=== PATIENT | female | born 1965 | race Caucasian/White ===

== ENCOUNTER 2019-11-19 11:38 | Emergency (ER) | payer OTHER, SELFPAY ==
[2019-11-19 12:22] LABS: Absolute Lymphocytes (CBC) 1.2 K/uL (0.7-4.9); Basophils % 0.3 % (0-1.3); Lymphocytes % 25.5 % (15.3-44.8); MPV 8.9 fL (7.6-11.3); RBC Red Blood Cell Count 4.54 M/uL (3.86-4.86)
[2019-11-19] MEDS ORDERED: ONDANSETRON 4 MG/2 ML VIAL ONE (12:22)
[2019-11-19] MEDS ORDERED: NA CHLORIDE 0.9% 1,000 ML ONE (12:22)
[2019-11-19 12:37] LABS: ALT/SGPT 18 U/L (12-78); AST/SGOT 15 U/L (15-37); Alkaline Phosphatase 94 U/L (45-117); BUN Blood Urea Nitrogen 8 mg/dL (7-18); Bicarbonate 27 mmol/L (21-32); Bilirubin Direct 0.3 mg/dL (0-0.2); Bilirubin Total 1.5 mg/dL (0.2-1.0); Glucose Level 77 mg/dL (74-106); Lipase 96 U/L (73-393); Potassium 3.6 mmol/L (3.5-5.1); Protein, Total 7.4 g/dL (6.4-8.2); Sodium Level 141 mmol/L (136-145)
--- NOTE | 2019-11-19 13:50 | RAD REPORT ---
EXAM DESCRIPTION: CT - Abdomen Pelvis W Contrast - 11/19/2019 1:32 pm CLINICAL HISTORY: Abd pain;Constipation COMPARISON: <Comparisons> TECHNIQUE: Biphasic, helical CT imaging of the abdomen and pelvis was performed following 100 ml non -ionic IV contrast. No oral contrast given. All CT scans are performed using dose optimization technique as appropriate and may include automated exposure control or mA/KV adjustment according to patient size. FINDINGS: No suspicious findings in the lung bases. The liver, spleen, and pancreas show no suspicious findings. Gallbladder and biliary tree are also wi thout suspicious finding. Symmetric renal function is seen with no hydronephrosis or suspicious renal mass. No pyelonephritis o r acute parenchymal process. No bladder abnormalities. No adrenal abnormalities. No dilated bowel loops or bowel wall thickening. No free air, free fluid or inflammatory stranding. No hernia, mass or bulky lymphadenopathy. Uterus and ovaries show no suspicious findings. Degenerative and scoliosis changes are present in the spine with fusion hardware present posteriorly. IMPRESSION: Contrast enhanced CT abdomen and pelvis showing no significant or suspicious finding.
--- NOTE | 2019-11-19 14:12 | ER ---
Nurse's Notes [facility] Name: Cathy Martinez Age: 54 yrs Sex: Female : 1965 Arrival Date: 11/19/2019 Time: 11:41 Bed 13 Private MD: Diagnosis: Lower abdominal pain, unspecified Presentation: 11/18 11:47 Chief complaint: Patient states: Lower abdominal pain and tenderness x 3 days, mostly ca1 in the middle, intermittent. Constipation x 4 - 5 days, tool stool softeners with no relief. Reports diarrhea today, watery and ribbon-like. Denies previous HX of intestinal obstruction. 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 Coronavirus screen: Client denies travel out of the [place] in the last 14 days. diarrhea, nausea, vomiting. Client presents with at least one sign or symptom that may indicate coronavirus-19. Standard/surgical mask placed on the client. Provider contacted for isolation considerations. Ebola Screen: Patient negative for fever greater than or equal to 101.5 degrees Fahrenheit, and additional compatible Ebola Virus Disease symptoms Patient denies exposure to infectious person. Patient denies travel to an Ebola-affected area in the 21 days before illness onset. No symptoms or risks identified at this time. Initial Sepsis Screen: Does the patient meet any 2 criteria? No. Patient's initial sepsis screen is negative. Does the patient have a suspected source of infection? No. Patient's initial sepsis screen is negative. Risk Assessment: Do you want to hurt yourself or someone else? Patient reports no desire to harm self or others. Onset of symptoms was November 19, 2019. 11:47 Method Of Arrival: Ambulatory ca1 11:47 Acuity: DAMION 3 ca1 Triage Assessment: 12:00 General: Appears in no apparent distress. comfortable, Behavior is calm, cooperative, ca1 appropriate for age. Pain: Complains of pain in right lower quadrant and left lower quadrant Pain does not radiate. Pain currently is 2 out of 10 on a pain scale. Quality of pain is described as tender, Pain began 2-3 days ago. Is intermittent. EENT: No signs and/or symptoms were reported regarding the EENT system. Neuro: Level of Consciousness is awake, alert, obeys commands, Oriented to person, place, time, situation. Cardiovascular: Heart tones S1 S2 present Capillary refill < 3 seconds Patient's skin is warm and dry. Respiratory: Airway is patent Respiratory effort is even, unlabored, Respiratory pattern is regular, symmetrical, Breath sounds are clear bilaterally. GI: Abdomen is flat, non-distended, Bowel sounds present X 4 quads. Abd is soft X 4 quads Abdomen is tender to palpation in middle of lower quadrants Reports constipation, diarrhea. : No signs and/or symptoms were reported regarding the genitourinary system. Derm: Skin is intact, is healthy with good turgor, Skin is pink, warm \T\ dry. Musculoskeletal: Circulation, motion, and sensation intact. Capillary refill < 3 seconds. FORMULA CHECKER: 12:00 LMP N/A - Post-menopause ca1 Historical: - Allergies: 12:00 No Known Allergies; ca1 - Home Meds: 12:00 None [Active]; ca1 - PMHx: 12:00 None; ca1 - PSHx: 12:00 ; ca1 - Immunization history:: Adult Immunizations up to date. - Social history:: Smoking status: Patient denies any tobacco usage or history of. - Family history:: not pertinent. - Hospitalizations: : No recent hospitalization is reported. Screenin:02 Abuse screen: Denies threats or abuse. Denies injuries from another. Nutritional ca1 screening: No deficits noted. Tuberculosis screening: No symptoms or risk factors identified. Fall Risk IV access (20 points). Assessment: 12:02 Reassessment:. Reassessment: See triage assessment. ca1 12:17 Reassessment: PO contrast completed. Notified CT. ca1 13:05 Reassessment: Patient appears in no apparent distress at this time. Patient and/or ca1 family updated on plan of care and expected duration. Pain level reassessed. Patient is alert, oriented x 3, equal unlabored respirations, skin warm/dry/pink. 14:05 Reassessment: Patient appears in no apparent distress at this time. Patient and/or ca1 family updated on plan of care and expected duration. Pain level reassessed. Patient is alert, oriented x 3, equal unlabored respirations, skin warm/dry/pink. Vital Signs: 11:47 BP 121 / 66; Pulse 85; Resp 17 S; Temp 98.3(TE); Pulse Ox 100% on R/A; Weight 61.23 kg ca1 (R); Height 5 ft. 4 in. (162.56 cm) (R); Pain 2/10; 13:09 BP 104 / 66; Pulse 60; Resp 18 S; Pulse Ox 100% on R/A; ca1 14:05 BP 109 / 63; Pulse 75; Resp 15 S; Pulse Ox 100% on R/A; ca1 11:47 Body Mass Index 23.17 (61.23 kg, 162.56 cm) ca1 ED Course: 11:41 Patient arrived in ED. ag5 11:46 Keisha Villegas, JERRY is Primary Nurse. ca1 11:47 Pranav Zacarias MD is Attending Physician. rn 12:00 Triage completed. ca1 12:00 Arm band placed on right wrist. ca1 12:02 Patient has correct armband on for positive identification. Placed in gown. Bed in low ca1 position. Call light in reach. Side rails up X 1. Pulse ox on. NIBP on. Warm blanket given. 12:10 No provider procedures requiring assistance completed. Initial lab(s) drawn, by ED ca1 staff, sent to lab. Inserted saline lock: 20 gauge in right antecubital area, using aseptic technique. ,using aseptic technique. by JERRY Friedman Blood collected. 13:31 CT Abd/Pelvis - PO and IV Contrast In Process Unspecified. EDMS 14:11 Michael Singh MD is Referral Physician. rn 14:36 IV discontinued, intact, bleeding controlled, No redness/swelling at site. Pressure ca1 dressing applied. Administered Medications: 12:11 Drug: NS 0.9% 1000 ml Route: IV; Rate: 1000 ml; Site: right antecubital; ca1 13:10 Follow up: Response: No adverse reaction; IV Status: Completed infusion; IV Intake: ca1 1000ml 12:13 Drug: Zofran (Ondansetron) 4 mg Route: IVP; Site: right antecubital; ca1 13:00 Follow up: Response: No adverse reaction; Nausea is decreased ca1 Intake: 13:10 IV: 1000ml; Total: 1000ml. ca1 Outcome: 14:12 Discharge ordered by . rn 14:36 Discharged to home ambulatory. ca1 14:36 Condition: stable 14:36 Discharge instructions given to patient, Instructed on discharge instructions, follow up and referral plans. Demonstrated understanding of instructions, follow-up care. 14:36 Patient left the ED. ca1 Signatures: Dispatcher [employer] EDMS Deann Pranav, MD MD rn Acob, JERRY Valdes RN ca1 Summer Gonzalez ag5 Corrections: (The following items were deleted from the chart) 14:38 14:36 Response: No adverse reaction; IV Status: Completed infusion; IV Intake: 1000ml ca1 ca1
--- NOTE | 2019-11-19 14:13 | EDPHYS ---
Physician Documentation [facility] Name: Cathy Martinez Age: 54 yrs Sex: Female : 1965 Arrival Date: 11/19/2019 Time: 11:41 Bed 13 Private MD: ED Physician Pranav Zacarias HPI: 11/18 12:03 This 54 yrs old Female presents to ER via Ambulatory with complaints of rn Abdominal Pain, Constipation. 12:03 The patient presents with abdominal pain in the lower abdomen. Onset: The rn symptoms/episode began/occurred 2 day(s) ago. Associated signs and symptoms: Pertinent positives: constipation, Pertinent negatives: blood in stools, fever. The symptoms are described as crampy, intermittent. Modifying factors: The symptoms are alleviated by nothing, the symptoms are aggravated by touching the area. Severity of pain: At its worst the pain was mild in the emergency department the pain is unchanged. The patient has not experienced similar symptoms in the past. The patient has not recently seen a physician. Reports constipation yesterday, has hx of constipation, stool softeners weren't working, now having ribbons of stool and passing gas with liquid stool. + intermittent lower abd pain. No vomiting. No fever. No hx of obstruction. + c-sections in past. . [employer]: 12:00 LMP N/A - Post-menopause ca1 Historical: - Allergies: 12:00 No Known Allergies; ca1 - Home Meds: 12:00 None [Active]; ca1 - PMHx: 12:00 None; ca1 - PSHx: 12:00 ; ca1 - Immunization history:: Adult Immunizations up to date. - Social history:: Smoking status: Patient denies any tobacco usage or history of. - Family history:: not pertinent. - Hospitalizations: : No recent hospitalization is reported. ROS: 12:03 Constitutional: Negative for fever, chills, and weight loss, Eyes: Negative for injury, rn pain, redness, and discharge, Cardiovascular: Negative for chest pain, palpitations, and edema, Respiratory: Negative for shortness of breath, cough, wheezing, and pleuritic chest pain, Abdomen/GI: + abd pain and constipation MS/Extremity: Negative for injury and deformity, Skin: Negative for injury, rash, and discoloration, Neuro: Negative for headache, weakness, numbness, tingling, and seizure. Exam: 12:03 Constitutional: This is a well developed, well nourished patient who is awake, alert, rn and in no acute distress. Head/Face: Normocephalic, atraumatic. Cardiovascular: Regular rate and rhythm. No pulse deficits. Respiratory: No increased work of breathing, no retractions or nasal flaring. Abdomen/GI: soft, mild suprapubic tenderness, no distension, no masses Skin: Warm, dry MS/ Extremity: Pulses equal, no cyanosis. Neurovascular intact. Full, normal range of motion. Equal circumference. Neuro: Awake and alert, GCS 15 Vital Signs: 11:47 BP 121 / 66; Pulse 85; Resp 17 S; Temp 98.3(TE); Pulse Ox 100% on R/A; Weight 61.23 kg ca1 (R); Height 5 ft. 4 in. (162.56 cm) (R); Pain 2/10; 13:09 BP 104 / 66; Pulse 60; Resp 18 S; Pulse Ox 100% on R/A; ca1 14:05 BP 109 / 63; Pulse 75; Resp 15 S; Pulse Ox 100% on R/A; ca1 11:47 Body Mass Index 23.17 (61.23 kg, 162.56 cm) ca1 MDM: 11:47 Patient medically screened. rn 14:10 Differential diagnosis: bowel obstruction, non-specific abd pain, constipation, fecal rn impaction, colonic inflammation, colitis, cancer. Data reviewed: vital signs, nurses notes, lab test result(s), radiologic studies, CT scan, and as a result, I will discharge patient. Counseling: I had a detailed discussion with the patient and/or guardian regarding: the historical points, exam findings, and any diagnostic results supporting the discharge/admit diagnosis, lab results, radiology results, the need for outpatient follow up, to return to the emergency department if symptoms worsen or persist or if there are any questions or concerns that arise at home. Special discussion: Based on the patient's Hx, exam, and Dx evaluation, there is no indication for emergent surgery or inpatient Tx. It is understood by the patient/guardian that if the Sx's persist or worsen they need to return immediately for re-evaluation. I discussed with the patient/guardian in detail that at this point there is no indication for admission to the hospital. It is understood, however, that if the symptoms persist or worsen the patient needs to return immediately for re-evaluation. Based on the history and exam findings, there is no indication for further emergent testing or inpatient evaluation. I discussed with the patient/guardian the need to see the signal technician for further evaluation of the symptoms. ED course: Pt without acute findings in blood or ct abdomen, recommend close f/u with GI for scope given ribbon like stools. Offered stool culture, patient would like to consult with Dr. Singh before doing anything else now. . 11/18 11:55 Order name: Basic Metabolic Panel; Complete Time: 12:40 rn 11/18 11:55 Order name: CBC with Diff; Complete Time: 12:40 rn 11/18 11:55 Order name: Hepatic Function; Complete Time: 12:40 rn 11/18 11:55 Order name: Lipase; Complete Time: 12:40 rn 11/18 11:55 Order name: CT Abd/Pelvis - PO and IV Contrast; Complete Time: 13:53 rn 11/18 11:55 Order name: IV Saline Lock; Complete Time: 12:13 rn 11/18 11:55 Order name: Labs collected and sent; Complete Time: 12:13 rn Administered Medications: 12:11 Drug: NS 0.9% 1000 ml Route: IV; Rate: 1000 ml; Site: right antecubital; ca1 13:10 Follow up: Response: No adverse reaction; IV Status: Completed infusion; IV Intake: ca1 1000ml 12:13 Drug: Zofran (Ondansetron) 4 mg Route: IVP; Site: right antecubital; ca1 13:00 Follow up: Response: No adverse reaction; Nausea is decreased ca1 Disposition: 11/19/19 14:12 Discharged to Home. Impression: Lower abdominal pain, unspecified. - Condition is Stable. - Discharge Instructions: Abdominal Pain, Adult, Pain Without a Known Cause. - Medication Reconciliation Form, Thank You Letter, Antibiotic Education, Prescription Opioid Use form. - Follow up: Michael Singh MD; When: As needed; Reason: Recheck today's complaints, Re-evaluation by your physician. - Problem is new. - Symptoms are unchanged. Signatures: Dispatcher [employer] EDMS Pranav Zacarias MD MD rn Acob, JERRY Valdes RN ca1 Corrections: (The following items were deleted from the chart) 14:36 14:12 11/19/2019 14:12 Discharged to Home. Impression: Lower abdominal pain, ca1 unspecified. Condition is Stable. Forms are Medication Reconciliation Form, Thank You Letter, Antibiotic Education, Prescription Opioid Use. Follow up: Michael Singh; When: As needed; Reason: Recheck today's complaints, Re-evaluation by your physician. Problem is new. Symptoms are unchanged. rn
[2019-11-19 14:54] VITALS: TEMP 98.3; O2SAT 100
[2019-11-19 15:00] VITALS: BP 109/63
== END 2019-11-19 14:36 | disposition home or self-care (01) ==
LOC: ER 11:38
DX: R10.30 Lower abdominal pain, unspecified (principal)
CPT/HCPCS: 96361; 85025; 80048; 36415; 80076; 83690; 74177; 96374; 99284; Q9967; J7030; J2405